=== PATIENT | male | born 1995 | race Caucasian/White ===

== ENCOUNTER 2016-10-13 14:37 | Emergency (ER) | payer OTHER ==
[2016-10-13 14:55] VITALS: BP 161/90; PULSE 85; RESP 18; TEMP 98; O2SAT 97
[2016-10-13] MEDS ORDERED: LETS SOLN TOPICAL 1 EA SYR TP ONE (14:56)
--- NOTE | 2016-10-13 15:11 | UCPHY ---
H & P Patient Type: New Chief Complaint Nursing Narrative: cut lt middle finger on metal barrel while @ work today HPI/ROS: HPI CHIEF COMPLAINT: Laceration left hand palmar side middle index HISTORY OF PRESENT ILLNESS: This patient very pleasant 21-year-old male no significant medical history does not take any daily medications, tells me his tetanus shot he thinks is not up-to-date, who presents urgent care with a laceration palmar side middle phalanx distal aspect after was moving a metal barrel. He is right-hand dominant. He works as a custom fabricator. Upon arrival here he has a laceration palmar side distal aspect 3rd digit 4 cm in length. Sustained this after removing a metal barrel. His hands grossly contaminated with grease and dirt. Past Medical History: No medical history Past Surgical History: No surgical history Social History: Denies daily use of drugs alcohol tobacco products Family History: Noncontributory ROS REVIEW OF SYSTEMS: A comprehensive 10 point review of systems is otherwise negative aside from elements mentioned in the history of present illness. Exam Constitutional triage nursing summary reviewed, vital signs reviewed, awake/ alert. Eyes normal conjunctivae and sclera, EOMI, PERRLA. HENT normal inspection, atraumatic, moist mucus membranes, no epistaxis, neck supple/ no meningismus, no raccoon eyes. Respiratory clear to auscultation bilaterally, normal breath sounds, no respiratory distress, no wheezing. Cardiovascular rate normal, regular rhythm, no murmur, no edema, distal pulses normal. Gastrointestinal soft, non-tender, no rebound, no guarding, normal bowel sounds, no distension, no pulsatile mass. Genitourinary no CVA tenderness. Musculoskeletal no midline vertebral tenderness, full range of motion, no calf swelling, no tenderness of extremities, no meningismus, good pulses, neurovascularly intact. Skin left hand: 4 cm horizontal laceration palmar aspect 3rd digit, distal aspect, grossly contaminated grease, otherwise neurovascular intact, pink, warm , & dry, no rash, skin atraumatic. Neurologic awake, alert and oriented x 3, AAOx3, moves all 4 extremities equally, motor intact, sensory intact, CN II-XII intact, normal cerebellar, normal vision, normal speech. Psychiatric normal mood/affect. Heme/Lymph/Immune no lymphadenopathy. Differential Diagnosis: left hand laceration Medical Decision Making: Plan for this patient will need copiously washed out clean, tetanus shot will need to be updated. He will need to be closed suture wide laceration. All need to be explored. he will now be started on prophylactic antibiotics. Re-evaluation: 1609: Patient's hand is been copiously soaked and clean. The grease and dirt was removed. He has a 4 cm horizontal laceration over the distal aspect of the 3rd digit. Palmar aspect. Copiously clean. Irrigated. No debris no foreign body arterial injury no tendon injury. Copiously clean. Explored to the wound base. Tetanus shot has been updated. 1st dose of Keflex given the urgent care. Prescription for Keflex. He understands to monitor this wound closely , watch for signs of infection that is redness drainage pus. Laceration Repair Procedure: Verbal Consent was obtained, Under sterile conditions, The patient had lidocaine without epinephrine used approximately 3ccs to local anesthetize the 4cm Laceration. The wound was copiously irrigated with sterile fluid, the wound was explored for foreign bodies there were none visualized, the wound was explored with a sterile glove to the base. There are no deep structures involved, including no arterial injury. 3 interrupted 5.O Prolene Sutures were placed in this patient's laceration. He had good close approximation of the wound edges. He Tolerated this well. Source: Patient - Personal History Current Tetanus Diphtheria and Acellular Pertussis (TDAP): Yes - Medical/Surgical History Other PMH: denies - Family History Significant Family History: No pertinent family hx - Social History Smoking Status: Never smoked Constitutional: Initial Vital Signs Temperature (C) 36.6 C 10/13/16 14:54 Heart Rate 85 10/13/16 14:54 Respiratory Rate 18 10/13/16 14:54 Blood Pressure 161/90 H 10/13/16 14:54 O2 Sat (%) 97 10/13/16 14:54 O2 Delivery Mode Room Air Allergies/Adverse Reactions: No Known Allergies Allergy (Unverified 10/13/16 14:53) Home Medications: Medication Instructions Recorded NK [No Known Home Meds] 10/13/16 Medical Decision Making - Data Points Medications Given: Discontinued Medications Diphtheria/Tetanus/Acell Pertussis (Boostrix) 0.5 ml IM .ONCE ONE Stop: 10/13/16 15:15 Last Admin: 10/13/16 15:25 Dose: 0.5 ml Tetracaine/Epinephrine/Lidocaine (Lets Soln Topical) 1 ea TP EDNOW ONE Stop: 10/13/16 14:57 Last Admin: 10/13/16 15:04 Dose: Not Given Departure - Departure Disposition: Home, Routine, Self-Care Clinical Impression: Finger laceration Qualifiers: Encounter type: initial encounter Qualified Code(s): S61.219A - Laceration without foreign body of unspecified finger without damage to nail, initial encounter Condition: Good Instructions: Finger Laceration (ED) Additional Instructions: 1. Watch your wound very closely for infection this includes swelling, redness, pus. 2.Your sutures need to be removed in 12 days. 3. take antibiotics as prescribed. 4. return to the urgent care or emergency room if there is any questions or concerns about your wound. - PQRS PQRS Measurement: n/a
[2016-10-13] MEDS ORDERED: TDAP ADULT 0.5 ML INJ (BOOSTRIX) IM ONE (15:14)
[2016-10-13] MEDS ORDERED: CEPHALEXIN 500MG PREPACK#4 BTL TAKEHOME ONE (16:11)
[2016-10-13] MEDS ORDERED: CEPHALEXIN 500 MG CAP PO ONE (16:11)
== END 2016-10-13 16:30 | disposition home or self-care (01) ==
LOC: CED 14:37
PROC: 0HQGXZZ Repair Left Hand Skin, External Approach (ICD-10-PCS; principal; 2016-10-13)
DX: S61.211A Laceration without foreign body of left index finger without damage to nail, initial encounter (principal); W26.8XXA Contact with other sharp object(s), not elsewhere classified, initial encounter
CPT/HCPCS: 12002-PO; 99204-PO; G0463-PO